=== PATIENT | male | born 1940 | race Caucasian/White ===

== ENCOUNTER → 2018-06-12 10:33 | Outpatient (CLI) | payer MEDICARE, OTHER, SELFPAY ==
--- NOTE | 2018-06-12 | DI.MRI.S_ITS ---
PROCEDURE: MR KNEE RT WO CON INDICATIONS: PRIMARY OSTEOARTHRITIS OF RIGHT KNEE TECHNIQUE: Noncontrast sagittal PD fast spin echo and T2 fast spin echo with fat saturation, sagittal 3-D FLASH with fat saturation; coronal T1 spin echo and PD fast spin echo with fat saturation, and axial PD fast spin echo with fat saturation through the knee. COMPARISON: None. FINDINGS: Image quality: Diagnostic. Bones and joint: There is no acute fracture or dislocation. No suspicious osseous lesions are evident. There is a moderate size knee joint effusion without significant fluid extending into a Sampson cyst. Small intra-articular joint bodies are identified within the knee joint. Degenerative changes of the flabella are noted. Moderate to severe degenerative changes of the knee are most pronounced within the lateral compartment with large cartilaginous defects noted and underlying reactive marrow changes. Bony remodeling of the lateral tibial plateau is noted. Additional degenerative changes are present within the other 2 compartments of the knee. Cruciate ligaments: The anterior cruciate ligament is attenuated and demonstrates increased signal without a full-thickness tear evident. The posterior cruciate ligament is intact. Menisci: Complex tearing of the medial and lateral menisci is predominately seen through the body and posterior horns. There is at least partial-thickness tearing involving the medial and lateral posterior meniscal root. Medial structures: The medial collateral ligament is intact. The semimembranosus tendon insertion is intact. The imaged portions of the pes anserinus tendons are unremarkable. No significant fluid is contained within the pes anserinus bursa. Lateral structures: The popliteal tendon is thickened and edematous, but intact. The lateral collateral ligament proper (fibular collateral ligament) and the proximal tibiofibular ligaments are intact. The distal aspect of the biceps femoris tendon and the iliotibial band are intact. Anterior structures: The quadriceps and patellar tendons are intact. There is no significant edema in the infrapatellar fat pad. IMPRESSION: 1. Severe degenerative changes of the right knee are most pronounced within the lateral compartment. 2. Complex tearing of the medial and lateral menisci. 3. 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 4. Moderate-sized knee joint effusion containing multiple intra-articular joint bodies. 5. Mild proximal popliteal tendinopathy. Dictated by: Jas Dominguez M.D. on 06/12/2018 at 13:45 Approved by: Jas Dominguez M.D. on 06/12/2018 at 14:04
== END ==
PROVIDERS: PCP Family Medicine; Visit Provider Orthopaedic Surgery
DX: M17.11 Unilateral primary osteoarthritis, right knee (principal)
CPT/HCPCS: 73721

== ENCOUNTER → 2018-08-03 09:23 | Outpatient (CLI) | payer MEDICARE, OTHER, SELFPAY ==
[2018-08-03 09:37] LABS: Bacteria Urine None Seen; WBC Urine None Seen (0-5/HPF)
[2018-08-03 10:44] LABS: Add Manual Diff / Slide Review NO; Basophils Percent Auto 0.7 % (0-2); Eosinophils Percent Auto 1.7 % (2-4); Hematocrit 42.5 % (41-53); Hemoglobin 14.9 g/dL (13.5-17.5); Lymphocytes Percent Auto 25.1 % (25-40); Mean Corpuscular HGB Conc 35.1 % (30-36); Mean Corpuscular Hemoglobin 31.2 PG (26-34); Mean Corpuscular Volume 88.7 fL (80-100); Monocytes Percent Auto 6.6 % (3-14); Neutrophils Absolute Auto 2900 /uL (3000-5900); Neutrophils Percent Auto 65.9 % (50-75); Platelet Count 176 X10^3/uL (150-400); Red Blood Cell Count 4.79 X10^6/uL (4.5-5.9); Red Cell Distribution Width 14.2 % (11.6-14.8); White Blood Cell Count 4.4 X10^3/uL (4.5-11.0)
[2018-08-03 10:48] LABS: Hemoglobin A1C% w Est Avg Glu 5.2 % (4.0-6.0)
[2018-08-03 11:03] LABS: BUN Creatinine Ratio 16.3 (6-22); Blood Urea Nitrogen 13 mg/dL (9-20); Calcium 9.2 mg/dL (8.4-10.2); Carbon Dioxide 26 mmol/L (22-32); Chloride 102 mmol/L (98-107); Estimated Glomerular Filt Rate > 60.0 mL/min (>60); Glucose 125 mg/dL (80-110); HEMOLYSIS < 15 (0-50); Potassium 4.4 mmol/L (3.4-5.1); Sodium 142 mmol/L (137-145)
[2018-08-03 11:34] LABS: Appearance Urine UA CLEAR; Bilirubin Urine UA NEGATIVE (NEGATIVE); Color Urine UA YELLOW; Glucose Urine UA NEGATIVE (Normal); Ketones Urine UA NEGATIVE (NEGATIVE); Leukocyte Esterase Urine UA NEGATIVE (NEGATIVE); Nitrite Urine UA NEGATIVE (Negative); Occult Blood Urine UA TRACE-INTACT (Negative); Protein Urine UA NEGATIVE (Negative); Urobilinogen Urine UA 0.2 E.U./dL (0.2)
[2018-08-03 11:37] LABS: Culture Indicated Urine Cult Not Indicated; RBC Urine 1-5/HPF (0-5/HPF)
== END ==
PROVIDERS: PCP Family Medicine; Visit Provider Orthopaedic Surgery
DX: Z01.818 Encounter for other preprocedural examination (principal); Z01.812 Encounter for preprocedural laboratory examination; N39.9 Disorder of urinary system, unspecified; Z13.1 Encounter for screening for diabetes mellitus
CPT/HCPCS: 36415; 80048; 81001; 83036; 85025; 93005; 93010

== ENCOUNTER 2018-09-01 06:11 | Day surgery (SDC) | payer MEDICARE, OTHER, SELFPAY ==
[2018-08-12 08:31] VITALS: BMI 40.4
[2018-09-01] VITALS (13 sets, daily range): BP systolic 110–150; BP diastolic 49–86; PULSE 63–79; RESP 10–18; TEMP 36.3–37.3; O2SAT 92–98; BMI 29.0
--- NOTE | 2018-09-01 06:35 | DI.RAD.S_ITS ---
PROCEDURE: XR KNEE RT 1TO2V INDICATIONS: post op films TECHNIQUE: 2 view(s) of the knee acquired. COMPARISON: [facility], , KNEE 3V RIGHT, 10/22/2017, 9:17. FINDINGS: Bones: Patient is status post knee joint arthroplasty. Hardware components are in expected positions. Visualized bony structures are intact. Soft tissues: Overlying postoperative changes are noted. IMPRESSION: Status post right total knee arthroplasty. Dictated by: Josi Medellin M.D. on 09/01/2018 at 16:20 Approved by: Josi Medellin M.D. on 09/01/2018 at 16:20
[2018-09-01] MEDS: LACTATED RINGERS 1,000 ML 42 ML IV ×2 (06:50→09:41)
[2018-09-01] MEDS: VANCOMYCIN 1,000 MG/200 ML FROZ.PIGGY 200 MG IV (06:55)
[2018-09-01] MEDS: CELECOXIB 200 MG CAPSULE PO (06:58)
[2018-09-01] MEDS: PREGABALIN 75 MG CAPSULE PO (06:58)
[2018-09-01] MEDS: ACETAMINOPHEN 325 MG TABLET 975 MG PO ×3 (06:58→21:45)
[2018-09-01] MEDS: fentaNYL 100 MCG/2 ML INJ 50 MCG IV (07:40)
[2018-09-01] MEDS: MIDAZOLAM 2 MG/2 ML VIAL IV (07:40)
--- NOTE | 2018-09-01 07:42 | PM.PREOP ---
Pre-operative Note Interval Note History & Physical reviewed/Exam performed by Physician: Yes Changes to H&P: No
--- NOTE | 2018-09-01 07:42 | PM.OP.1 ---
Operative Date/Time/Diagnoses Date of procedure: 09/01/18 Time of procedure: 09:42 Pre-op diagnosis: right knee OA Post-op diagnosis: same Procedure & Clinicians Procedure: right total knee Same procedure as scheduled: Yes Indications: The patient has had progressively worsening right knee pain with radiographic changes consistent with arthritis. Non-operative management has failed and the patient has requested total knee replacement. The risks, benefits and alternatives to surgery were discussed with the patient prior to proceeding. Risks discussed included, but were not limited to, failure to relieve pain, stiffness, infection, nerve damage, deep venous thrombosis, pulmonary embolism, stroke, coma, heart attack, permanent paralysis and , as well as the potential need for eventual revision of the prosthetic. Surgeon: Viridiana Del Toro Hairspring Setter: Lizette Strickland Anesthesia Type: Spinal and Peripheral nerve block Operative Notes Findings: severe right knee OA, good balance and rom Closure Type: primary Specimen(s): none sent Implants & Drains: Journey BCS2 9 femur, 8 tibia, +9 poly, 38 oval patella Applied: device(s) Estimated Blood Loss (mL): 250 Blood products transfused: none Tourniquet time (min): 109 Procedure in detail: The patient was seen in the pre-operative area, where the patient identified the right knee as the operative site and this was marked with my initials. The patient received pre-operative antibiotics, and was taken to the operating room and placed on the operative table in the supine position. After satisfactory anesthesia, a full fashioned garment knitter out was performed. The right leg was encircled with a tourniquet about the proximal thigh, and the leg was prepared from the toes to the tourniquet with ChloroPrep in the usual fashion and draped through sterile drapes. The leg was elevated and exsanguinated with Eschmark bandage and the tourniquet inflated to [250] mmHg pressure. The knee was approached through an approximately 18 cm incision centered over the patella and carried into the knee through a medial parapatellar arthrotomy. A portion of the medial and lateral meniscus was resected. Soft tissue was carefully mobilized around the patella the patella was measured with a caliper. Bone was resected from the patella and the patellar height was reconstituted with up an appropriate sized patellar component. A cover was then placed on the patella. A small amount of additional medial and lateral meniscus was resected. The visionare guide fit well to the distal femur. It looked like an appropriate distal femoral cut and the cut was made without difficulty. The rotation was assessed and the appropriate size femoral guide was placed on the distal femur and finishing cuts were made. There was no evidence of notching. The anterior, posterior and chamfer cuts were then made. The posterior osteophytes and soft tissues were then removed. The posterior capsule was injected with part of a mixture of 60 ml 0.25% Marcaine mixed with 20 ml Exparel for post operative pain control. The remainder of this mixture was injected into the capsule and subcutaneous tissues during cement curing. The tibia was prepared and the visionaire guide fit well to the distal tibia. The rotation was assessed. The patient was placed in extension residual medial and lateral meniscus as well as any residual bone was carefully resected. [2mm] additional tibia was resected. Hemostasis was achieved especially posteriorly. Additional local was injected into the posterior capsule. The extension gap was assessed and additional releases for gap balancing were performed as necessary. It was checked with the gap dowel pointer. The femoral component trial was placed and the notch was finished. Trial tibial and femoral components were then placed and the knee placed through a range of motion. Range of motion was [0-130], with good stability throughout the range. The trials were then removed, and the tibia was finished. The bone was prepared with pulsatile lavage, and dried with a sponge. Cement was applied and the final prosthetics placed. Excess cement was removed during and after cement curing. A brief Betadine soak was performed. After confirming there was no extruded cement posteriorly, the final tibial insert was placed. The knee was copiously irrigated and the tourniquet deflated. Hemostasis was obtained with the [Aquamantys system]. A drain was placed and brought out superolaterally. The capsule was closed with interrupted # 1 black braided suture. The subcutaneous layer was closed with barbed sutures, and the skin with a running 3-0 V-Lock suture and Surgical glue. An Aquacel Ag dressing was applied and the patient was taken to recovery having tolerated the procedure well. Complications: none Condition: stable Disposition: Acute Care Plan for aftercare: The patient will be maintained on a standard total knee replacement protocol with weight bearing as tolerated. The patient will receive aspirin and sequential compression devices for DVT prophylaxis. The patient will be discharged home when safe for the home environment.
--- NOTE | 2018-09-01 07:45 | P.OP_ITS ---
Operative Date/Time/Diagnoses Date of procedure: 09/01/18 Time of procedure: 09:42 Pre-op diagnosis: right knee OA Post-op diagnosis: same Procedure & Clinicians Procedure: right total knee Same procedure as scheduled: Yes Indications: The patient has had progressively worsening right knee pain with radiographic changes consistent with arthritis. Non-operative management has failed and the patient has requested total knee replacement. The risks, benefits and alternatives to surgery were discussed with the patient prior to proceeding. Risks discussed included, but were not limited to, failure to relieve pain, stiffness, infection, nerve damage, deep venous thrombosis, pulmonary embolism, stroke, coma, heart attack, permanent paralysis and , as well as the potential need for eventual revision of the prosthetic. Surgeon: Viridiana Del Toro Gate Agent: Lizette Strickland Anesthesia Type: Spinal and Peripheral nerve block Operative Notes Findings: severe right knee OA, good balance and rom Closure Type: primary Specimen(s): none sent Implants & Drains: Journey BCS2 9 femur, 8 tibia, +9 poly, 38 oval patella Applied: device(s) Estimated Blood Loss (mL): 250 Blood products transfused: none Tourniquet time (min): 109 Procedure in detail: The patient was seen in the pre-operative area, where the patient identified the right knee as the operative site and this was marked with my initials. The patient received pre-operative antibiotics, and was taken to the operating room and placed on the operative table in the supine position. After satisfactory anesthesia, a time analysis clerk out was performed. The right leg was encircled with a tourniquet about the proximal thigh, and the leg was prepared from the toes to the tourniquet with ChloroPrep in the usual fashion and draped through sterile drapes. The leg was elevated and exsanguinated with Eschmark bandage and the tourniquet inflated to [250] mmHg pressure. The knee was approached through an approximately 18 cm incision centered over the patella and carried into the knee through a medial parapatellar arthrotomy. A portion of the medial and lateral meniscus was resected. Soft tissue was carefully mobilized around the patella the patella was measured with a caliper. Bone was resected from the patella and the patellar height was reconstituted with up an appropriate sized patellar component. A cover was then placed on the patella. A small amount of additional medial and lateral meniscus was resected. The visionare guide fit well to the distal femur. It looked like an appropriate distal femoral cut and the cut was made without difficulty. The rotation was assessed and the appropriate size femoral guide was placed on the distal femur and finishing cuts were made. There was no evidence of notching. The anterior, posterior and chamfer cuts were then made. The posterior osteophytes and soft tissues were then removed. The posterior capsule was injected with part of a mixture of 60 ml 0.25% Marcaine mixed with 20 ml Exparel for post operative pain control. The remainder of this mixture was injected into the capsule and subcutaneous tissues during cement curing. The tibia was prepared and the visionaire guide fit well to the distal tibia. The rotation was assessed. The patient was placed in extension residual medial and lateral meniscus as well as any residual bone was carefully resected. [2mm] additional tibia was resected. Hemostasis was achieved especially posteriorly. Additional local was injected into the posterior capsule. The extension gap was assessed and additional releases for gap balancing were performed as necessary. It was checked with the gap senior adults director. The femoral component trial was placed and the notch was finished. Trial tibial and femoral components were then placed and the knee placed through a range of motion. Range of motion was [0-130 ], with good stability throughout the range. The trials were then removed, and the tibia was finished. The bone was prepared with pulsatile lavage, and dried with a sponge. Cement was applied and the final prosthetics placed. Excess cement was removed during and after cement curing. A brief Betadine soak was performed. After confirming there was no extruded cement posteriorly, the final tibial insert was placed. The knee was copiously irrigated and the tourniquet deflated. Hemostasis was obtained with the [Aquamantys system]. A drain was placed and brought out superolaterally. The capsule was closed with interrupted # 1 black braided suture. The subcutaneous layer was closed with barbed sutures, and the skin with a running 3 -0 V-Lock suture and Surgical glue. An Aquacel Ag dressing was applied and the patient was taken to recovery having tolerated the procedure well. Complications: none Condition: stable Disposition: Acute Care Plan for aftercare: The patient will be maintained on a standard total knee replacement protocol with weight bearing as tolerated. The patient will receive aspirin and sequential compression devices for DVT prophylaxis. The patient will be discharged home when safe for the home environment.
[2018-09-01] MEDS: CEFAZOLIN 2 GM/100 ML FROZ.PIGGY IV ×2 (07:53→16:10)
--- NOTE | 2018-09-01 07:58 | SUR.PREOP ---
Block start time [0740] . Monitoring initiated and maintained throughout procedure. Oxygen and medications given per anesthesiologist instructions. Patient remained stable throughout procedure, no adverse reactions noted. Block end time [0748].
[2018-09-01] MEDS: TRANEXAMIC ACID 1,000 MG VIAL 1000 MG INJ ×2 (08:14→10:21)
--- NOTE | 2018-09-01 08:34 | SUR.OPER ---
Supine on padded OR bed, head on pillow, arms secured on padded arm boards at <90 degrees abduction, legs uncrossed, safety belt at thigh, tape over blanket over lower legs.
[2018-09-01] MEDS: BUPIVACAINE 0.25% W/ EPI VIAL 50 ML INJ (08:41)
[2018-09-01] MEDS: BUPIVACAINE LIPOSOME 266 MG/20 ML VIAL INJ (08:42)
[2018-09-01] MEDS: POVIDONE-IODINE 15 ML, SODIUM CHLORIDE 0.9% 250 ML TOP (08:43)
--- NOTE | 2018-09-01 09:04 | PM.PROC.1 ---
Procedures Date/Time Date of procedure: 09/01/18 Time of procedure: 07:40 Nerve Block Time out performed: Yes Local anesthetic used: lidocaine 2% (Lido 1% for skin infiltration, 25g; For Block= Ropivacaine 0.5% 18ml; Lido 2% w/ epi 5ml, 22g stimex 100mm) Location of anesthetic used: Adductor canal right medial thigh Amount of anesthesia used (mL): 23 Nerve blocks: hematoma block and other (Adductor Canal, saphenous nerve, right) Procedure successful: Yes Patient tolerated procedure: well and no complications Complications: none Additional comments: Sterile technique used. Monitors per HÉCTOR guidelines. O2 per NC. IV sedation with Versed 1mg and fentanyl 50mcg. Ultrasound technique used. Negative aspiration and no paresthesias. Patient tolerated well.
[2018-09-01] MEDS: LACTATED RINGERS 1,000 ML 125 ML IV ×2 (12:29→22:26)
--- NOTE | 2018-09-01 12:41 | PC.NURSE ---
Pt to room at 1135 from PACU in bed with Spouse at the bedside. Pt awake alert and oriented x3. Denies pain, nausea, or shortness of breath. Pt can move feet but feels that his sensation to his feet is decreased. PP+. Pt oriented to room, call light, bed controls, and tv controls. IV infusing as ordered. SCD's on and running. Bed alarm on and Pt agrees to call for assistance as needed.
--- NOTE | 2018-09-01 13:48 | PT.IIE ---
Current Diagnoses Unilateral primary osteoarthritis, right knee (09/01/18) Surgery Performed Operation Date: 09/01/18 07:45 Actual Procedures p Total Knee Arthroplasty(Right) - Viridiana Del Toro MD Surgical History (Last Updated 08/12/18 @ 09:14 by Jonna Conti, RN) H/O knee surgery (Acute) History of appendectomy (Acute) History of vasectomy (Acute) Medical History (Last Updated 08/12/18 @ 09:14 by Jonna Conti, RN) Cataract fragments of both eyes following cataract surgery (Acute) Hyperlipidemia (Acute) Osteoarthritis of right knee (Acute) Pulmonary emboli (Acute ~2002) Skin cancer (Acute) Physical Therapy Inpatient Evaluation/Re-Eval M1 PT/OT-IP Prior Functional Status Start: 09/01/18 13:40 Freq: NEEDED Status: Active Protocol: Document 09/01/18 13:40 RS (Rec: 09/01/18 13:47 RS [id number]) Medical Review Prior Functional Status Medical History Reviewed Yes Diet/Fluid Consistency Regular Communication no known deficits Mobility and Gait completely indep without AD Activities of Daily Living and IADL's indep Prior Functional Level (Other details) retired, goes out in the RV for a few months each year Social History Household Members spouse Living Arrangements House Number of Floors (Floors) One Floor Number of Stairs To Enter/Railing? 3STE on RV, but no stairs at home Home Environment Standard Height Toilet Home Equipment Front Wheel Walker Employment Status Retired M2 PT-IP Current Condition Start: 09/01/18 13:40 Freq: NEEDED Status: Active Protocol: Document 09/01/18 13:40 RS (Rec: 09/01/18 13:47 RS [id number]) Physical Therapy Current Condition Current Condition Evaluation Date 09/01/18 Treatment Diagnosis R TKA Onset Date 09/01/18 Weight Bearing Status Weight Bearing Status Weight Bear as Tolerated M3 PT-IP Subjective Start: 09/01/18 13:40 Freq: NEEDED Status: Active Protocol: Document 09/01/18 13:40 RS (Rec: 09/01/18 13:47 RS [id number]) Subjective Physical Therapy Visit Type Type Initial Evaluation Visit Start Time 12:55 Visit Stop Time 13:40 Total Visit Minutes 45 Physical Therapy Visit Comments Patient Comments Pt reports doing well, surprised with how good he feels. Patient Goals go home tomorrow, be ready to go out in the by October Therapy Pain Assessment Pain When Pain Assessed At Rest Pain Present Pain Present Denied Pain M4 PT-IP Mobility and Gait Start: 09/01/18 13:40 Freq: NEEDED Status: Active Protocol: Document 09/01/18 13:40 RS (Rec: 09/01/18 13:47 RS [id number]) PT-Bed Mobility Assessment Supine to Sit Supine to Sit Independent Sit to Supine Sit to Supine Independent Scooting Scooting to Edge of Bed Independent PT-Transfer Assessment Sit to and From Stand Sit to and from Stand Standby Assistance Equipment Transfer Assistive Device Gait Belt Front Wheeled Walker Transfers Transfer Destination Bed Chair Transfer Technique walked Transfer Ability Level of Assist Standby Assistance Gait Assessment Gait Gait Assistance Required: Standby Assistance Distance (Feet) 100 Assistive Devices Assistive Device Gait Belt Front Wheeled Walker Gait Deviations General Gait Pattern Within Normal Limits Comments Gait Comments Slow gait velocity with FWW but steady, relatively symmetrical, heel able to pass the contralateral toe with each step but still shortened compared to likely baseline, smooth motion. Stair Climbing Assessment Comments Stair Climbing Comments not tested PT-Balance Assessment Sitting Balance and Reactions Static Sitting Balance Ability Normal Dynamic Sitting Balance Ability Normal Standing Balance and Reactions Static Standing Balance Ability Good Dynamic Standing Balance Ability Good Device Used FWW M5 PT-IP Objective Assessments Start: 09/01/18 13:40 Freq: NEEDED Status: Active Protocol: Document 09/01/18 13:40 RS (Rec: 09/01/18 13:47 RS [id number]) Orientation Orientation/Cognition Level of Alertness Alert Orientation Name Age Birthday Month Date Year Day of Week Place Situation Language Function Ability No Deficits Noted Safety Awareness Understands Safety Issues Memory Description No Deficits Noted Gross Range of Motion Upper Extremity ROM Assessment Within Functional Limits Lower Extremity ROM Assessment Right Impaired Impairments 5-85 Strength Upper Extremity Strength Assessment Within Functional Limits Lower Extremity Strength Assessment Right Impaired Comments Strength Comments R not tested but at least 3/5 M6 PT-IP Treatment Start: 09/01/18 13:40 Freq: NEEDED Status: Active Protocol: Document 09/01/18 13:40 RS (Rec: 09/01/18 13:47 RS [id number]) Physical Therapy Treatment Exercises Exercises Ankle Pumps Quad Sets Heel Slides Straight Leg Raises Short Arc Quads Passive Knee Extension Hang Seated Knee Flexion/Extension Knee ROM Measurement 5-85 Education Education Provided Precautions Weight Bearing Status Post-Op Packet Safety M7 PT-IP Assessment and Plan Start: 09/01/18 13:40 Freq: NEEDED Status: Active Protocol: Document 09/01/18 13:40 RS (Rec: 09/01/18 13:47 RS [id number]) PT Summary Assessment and Plan Potential Rehabilitation Potential Excellent Status of Condition at Evaluation Stable Summary Impairments Pain ROM Strength Transfers Gait Activity Tolerance Progress Towards Goals Progressing Toward Goals Assessment Summary Pt is POD#0 R TKA. Pt still with a little numbess but able to mobilize without unexpected difficulty. Pt is ind for bed mobility and SBA for FWW. Anticipate that pt will be mod ind wiht ongoing mobilization with nursing and therapy staff and that pt will be safe to discharge directly home tomorrow. Will need 1 more session for gait progress and stairs trial. Pt in agreement with plan. Goals Bed Mobility Goal Independent Transfer Goal Independent Front Wheeled Walker Gait Goal Independent Front Wheel Walker Gait Distance 200 Other Goals Up/down 3 steps with 1 rail. Days to Meet Goals 1 Frequency of Treatment Frequency Of Treatment Once a Day Treatment Plan Physical Therapy Treatment Plan Bed Mobility Training Transfer Training Gait Training Therapeutic Exercise Balance Retraining Post Op Education Discharge Planning Hot or Cold Pack Neuromuscular Re-ed Coordination Retraining Manual Therapy Recommendations To Nursing Amount of Assist Needed Standby Assistance Discharge Recommendations PT Discharge Recommendations Home with Assistance Outpatient PT
--- NOTE | 2018-09-01 18:54 | PC.NURSE ---
Addendum entered by Rachael Faust R.N. 09/01/18 18:59: @ [address] this RN spoke with Dr Del Toro regarding hemovac output; pt mentioned that he was maybe doing too much exercise, demonstrating quad sets which may have increased drain output; Dr Del Toro asks that nursing staff just keep an eye on it Original Note: @ 1820 fluid from hemovac measures 150 mL; pt denies dizziness; VSS; pt transfers with SBA to bathroom and bed; c/m/s to RLE positive with some mild tingling to right knee; PPP; ls clear, O2 RA=98%; pt denies pain; call light within reach
[2018-09-01] MEDS: ASPIRIN EC 81 MG TABLET PO (21:46)
[2018-09-01] MEDS: DOCUSATE 100 MG CAPSULE PO (21:46)
[2018-09-02] MEDS: CEFAZOLIN 2 GM/100 ML FROZ.PIGGY IV (00:16)
[2018-09-02 01:02] VITALS: BP 131/74; PULSE 67; RESP 16; TEMP 36.3; O2SAT 97
[2018-09-02 05:46] LABS: Hematocrit 39.1 % (41-53); Hemoglobin 13.5 g/dL (13.5-17.5)
[2018-09-02 06:47] VITALS: BP 135/71; PULSE 73; RESP 16; TEMP 36.5; O2SAT 95
[2018-09-02] MEDS: ACETAMINOPHEN 325 MG TABLET 975 MG PO (06:50)
[2018-09-02 07:30] VITALS: BP 139/74; PULSE 68; RESP 18; TEMP 36.3; O2SAT 97
--- NOTE | 2018-09-02 08:54 | PM.DS.1 ---
History of Present Illness Date Patient Seen: 09/02/18 Time Patient Seen: 08:54 Chief complaint: [id number] RIGHT TOTAL KNEE ARTHROPLASTY Narrative: The patient has had progressively worsening right knee pain with radiographic changes consistent with arthritis. Non-operative management has failed and the patient has requested total knee replacement. The risks, benefits and alternatives to surgery were discussed with the patient prior to proceeding. Risks discussed included, but were not limited to, failure to relieve pain, stiffness, infection, nerve damage, deep venous thrombosis, pulmonary embolism, stroke, coma, heart attack, permanent paralysis and , as well as the potential need for eventual revision of the prosthetic. Discharge Providers Date of admission: 09/01/18 06:11 Primary care physician: Art Nelson MD Consults: 09/01/18 06:35 Consult to Anesthesiology Routine Comment: Consulting Provider: Anesthesiologist Reason for consultation: Regional block for post operative pain control 09/01/18 11:43 Consult to Discharge Planning Routine Comment: Consult to Physical Therapy Evaluate & Treat Comment: Physician Instructions: postop TKA protocol Consult to Respiratory Therapy Evaluate & Treat Comment: Physician Instructions: Evaluate and treat Discharge provider: Genna Zapata PA-C Discharge Date: 09/02/18 Summary Discharge Diagnosis: s/p right total knee arthroplasty Hospital Course: Mohamud was admitted for right total knee arthroplasty with Dr. Del Toro, and he consented to procedure. Hospital course unremarkable. On POD #1 patient was ready to DC home. He was eating and voiding without any difficulty or assistance. He worked with PT throughout his stay. On day of discharge drain was removed. Status at Discharge Functional status at discharge: uses cane/walker Exam Vital Signs (past 8 hours): - 09/02/18 01:02 09/02/18 06:47 09/02/18 07:30 Temperature 97.3 F L 97.7 F 97.3 F L Pulse Rate 67 73 68 Respiratory Rate 16 16 18 Blood Pressure 131/74 135/71 139/74 Pulse Oximetry 97 95 97 Oxygen Delivery Method Room Air Oxygen Flow Rate 0 Narrative Exam Narrative: Patient sitting in bedside chair in NAD. He is alert and oriented X3. Dressing on right leg is CDI. Hemovac in place. Calves are soft, compressible, and nontender bilaterally. His pain was well controlled last night. Denies chest pain, or shortness of breath. Objective Labs Result Diagrams: 09/02/18 05:02 Labs: Laboratory Results - last 24 hr 09/02/18 05:02 Hgb 13.5 Hct 39.1 L Discharge Plan Discharge Plan Patient Disposition: Home Discharge comment: DC home today Discharge Med Rec/Prescriptions Prescriptions: New acetaminophen 325 mg Tablet 975 mg PO TID Qty: 60 RF: 0 docusate sodium 100 mg Capsule 100 mg PO BID Qty: 60 RF: 0 Continue MULTIVITAMIN (Multivitamin -) 1 cap PO EVERY DAY Qty: 0 RF: 0 celecoxib [Celebrex] 200 mg Capsule 200 mg PO DAILY PRN (Reason: Pain) RF: 0 Changed ASPIRIN (Aspirin Low Dose) 81 mg PO BID Qty: 0 RF: 0 Follow up/Referrals: Viridiana Del Toro MD [Physician] - (Follow up in 5-7 days) Skin/Wound/Dressing Care Report to your healthcare provider any signs of infection, such as:: chills, fever and increased pain Dressing: Leave in place for 10-14 days Visit Report/Discharge Packet Instructions: DI for Knee Replacement, DI for Constipation Discharge Data Primary Care Provider: Art Nelson Attending Provider: Viridiana Del Toro Admit Date/Time: 09/01/18 06:11 Quality VTE Deep Vein Thrombosis/Pulmonary Embolism Present on Admission: No
--- NOTE | 2018-09-02 09:29 | PT.IPTN ---
Current Diagnoses Unilateral primary osteoarthritis, right knee (09/01/18) Surgery Performed Operation Date: 09/01/18 07:45 Actual Procedures p Total Knee Arthroplasty(Right) - Viridiana Del Toro MD Physical Therapy Treatment Note M2 PT-IP Current Condition Start: 09/01/18 13:40 Freq: NEEDED Status: Active Protocol: Document 09/01/18 13:40 RS (Rec: 09/01/18 13:47 RS [id number]) Physical Therapy Current Condition Current Condition Evaluation Date 09/01/18 Treatment Diagnosis R TKA Onset Date 09/01/18 Weight Bearing Status Weight Bearing Status Weight Bear as Tolerated M3 PT-IP Subjective Start: 09/01/18 13:40 Freq: NEEDED Status: Active Protocol: Document 09/02/18 09:20 GGD (Rec: 09/02/18 09:29 GGD [email or web address]) Subjective Physical Therapy Visit Type Type Treatment Note Visit Start Time 08:55 Visit Stop Time 09:20 Total Visit Minutes 25 Number of SECURITY SYSTEM ANALYST Visits 1 Physical Therapy Visit Comments Patient Comments Pt feels ready to go home. Therapy Pain Assessment Pain When Pain Assessed At Rest Pain Present Pain Present Denied Pain M4 PT-IP Mobility and Gait Start: 09/01/18 13:40 Freq: NEEDED Status: Active Protocol: Document 09/02/18 09:20 GGD (Rec: 09/02/18 09:29 GGD [email or web address]) PT-Transfer Assessment Sit to and From Stand Sit to and from Stand Standby Assistance Equipment Transfer Assistive Device Gait Belt Front Wheeled Walker Transfers Transfer Destination Chair Transfer Ability Level of Assist Standby Assistance Gait Assessment Gait Gait Assistance Required: Standby Assistance Distance (Feet) 200 Assistive Devices Assistive Device Gait Belt Front Wheeled Walker Gait Deviations General Gait Pattern Within Normal Limits Comments Gait Comments improving step length with gait. M5 PT-IP Objective Assessments Start: 09/01/18 13:40 Freq: NEEDED Status: Active Protocol: Document 09/01/18 13:40 RS (Rec: 09/01/18 13:47 RS [id number]) Orientation Orientation/Cognition Level of Alertness Alert Orientation Name Age Birthday Month Date Year Day of Week Place Situation Language Function Ability No Deficits Noted Safety Awareness Understands Safety Issues Memory Description No Deficits Noted Gross Range of Motion Upper Extremity ROM Assessment Within Functional Limits Lower Extremity ROM Assessment Right Impaired Impairments 5-85 Strength Upper Extremity Strength Assessment Within Functional Limits Lower Extremity Strength Assessment Right Impaired Comments Strength Comments R not tested but at least 3/5 M6 PT-IP Treatment Start: 09/01/18 13:40 Freq: NEEDED Status: Active Protocol: Document 09/02/18 09:20 GGD (Rec: 09/02/18 09:29 GGD [email or web address]) Physical Therapy Treatment Exercises Exercises Ankle Pumps Quad Sets Straight Leg Raises Seated Knee Flexion/Extension M7 PT-IP Assessment and Plan Start: 09/01/18 13:40 Freq: NEEDED Status: Active Protocol: Document 09/02/18 09:20 GGD (Rec: 09/02/18 09:29 GGD [email or web address]) PT Summary Assessment and Plan Summary Assessment Summary Pt improving with mobility and ROM. He was safe and stable with gait and transfers. He had good pain control with all activities. He is safe for home D/C when medically stable . Frequency of Treatment Frequency Of Treatment Once a Day Recommendations To Nursing Amount of Assist Needed Standby Assistance Discharge Recommendations PT Discharge Recommendations Home with Assistance Outpatient PT
[2018-09-02] MEDS: IBUPROFEN 600 MG TABLET PO (09:41)
[2018-09-02] MEDS: DOCUSATE 100 MG CAPSULE PO (09:42)
[2018-09-02] MEDS: ASPIRIN EC 81 MG TABLET PO (09:42)
[2018-09-02] MEDS: MULTIVITAMIN 1 TABLET 1 TAB PO (09:42)
--- NOTE | 2018-09-02 10:14 | PC.NURSE ---
D/C note Drain d/c'd prior to discharge, dressing placed. Instructions given on knee replacement and constipation and meds reviewed. All questions answered. Escorted to hospital exit via wheelchair by staff member at [phone]. All belongings with patient.
--- NOTE | 2018-09-02 11:01 | PC.NURSE ---
Discharge: Pt feels ready to d/c home. Spouse here at time of teaching. Did see PA and received instructions from her. Saw PT this am and received their final instructions. Wound care has been discussed as well as nerve block wearing off. Pt does understand his knee precautions. Feels ready for d/c home. D/c home via auto with .
== END 2018-09-02 10:14 | disposition home or self-care (01) ==
LOC: AC 09-02 09:08 → OR 09-02 10:29
PROVIDERS: PCP Family Medicine; Visit Provider Orthopaedic Surgery
PROC: 0SRC0JZ Replacement of Right Knee Joint with Synthetic Substitute, Open Approach (ICD-10-PCS; CPT 27447; principal; 2018-09-01 07:45)
DX: M17.11 Unilateral primary osteoarthritis, right knee (principal); G89.18 Other acute postprocedural pain
CPT/HCPCS: 27447; 36415; 64447; 64450; 73560; 85014; 85018; 93005; 94760; 97110; 97116; 97161; C1776; C9290; J0690; J1100; J2250; J2405; J2704; J2795; J3010; J3370

== ENCOUNTER → 2020-12-04 10:20 | Outpatient (CLI) | payer MEDICARE, OTHER, SELFPAY ==
[2018-09-01 11:51] VITALS: BMI 29.0
[2020-12-04 14:37] LABS: COVID19 -Nasal RAPID Negative (Negative)
== END ==
PROVIDERS: PCP Family Medicine; Visit Provider Surgery
DX: Z20.822 Contact with and (suspected) exposure to COVID-19 (principal)
CPT/HCPCS: 87635; C9803

== ENCOUNTER 2020-12-05 06:21 | Day surgery (SDC) | payer MEDICARE, OTHER, SELFPAY ==
[2018-09-01 11:51] VITALS: BMI 29.0
[2020-12-05] VITALS (7 sets, daily range): BP systolic 101–157; BP diastolic 60–84; PULSE 62–83; RESP 12–16; TEMP 36.1–36.4; O2SAT 95–100; BMI 27.7
--- NOTE | 2020-12-05 07:08 | PM.HP.1 ---
History of Present Illness History of Present Illness Chief complaint: SCREENING COLONOSCOPY Patient History Medical History Cataract fragments of both eyes following cataract surgery Hyperlipidemia Osteoarthritis of right knee Pulmonary emboli (~2002) Skin cancer Surgical History H/O knee surgery History of appendectomy History of vasectomy Family & Social History Tobacco & Substance use: Smoking Status Never smoker Meds Home Medications and Allergies Home Medications Medication Instructions Recorded Confirmed Type MULTIVITAMIN (Multivitamin 1 cap PO EVERY DAY #0 07/23/08 12/05/20 History -) ASPIRIN (Aspirin Low Dose) 81 mg PO DAILY 12/05/20 12/05/20 History Allergies Allergy/AdvReac Type Severity Reaction Status Date / Time No Known Drug Allergies Allergy Unknown Verified 09/01/18 07:09 Review of Systems Review of Systems Narrative: no cough, no change in bowel habits, + weight loss due to knee surgery ROS: Yes All systems reviewed with the patient and are negative except as otherwise documented Exam Const General: cooperative and healthy appearing HENNJ Head: normal to inspection and atraumatic Eyes General: appearance normal, both eyes and all related structures Neck Neck: normal visual inspection and trachea midline Chest Chest: normal inspection of the chest Resp Effort & Inspection: normal respiratory effort and able to speak in complete sentences Auscultation: clear to auscultation bilaterally Cardio Rate: regular rate Rhythm: regular rhythm GI Inspection: normal to inspection Palpation: soft Skin General: dry skin Hair: general thinning Nails: normal Neuro General: patient alert, patient awake and patient oriented x3 Cranial Nerves: tongue midline Cognition: normal cognition Extrem General: full ROM Psych Appearance: grossly normal Speech and Movement: speech and movement normal Assessment & Plan Assessment & Plan narrative: here for screening colonoscopy. Asymptomatic, no family history for colon cancer. Last colonoscopy was 10-12 years ago due to bleeding and multiple polyps taken. COVID-19 COVID-19 status: Negative Time Spent With Patient Time with patient: 15-24 minutes
[2020-12-05] MEDS: LACTATED RINGERS 1,000 ML 125 ML IV (07:34)
--- NOTE | 2020-12-05 07:39 | PM.OP.ENDO ---
Operative Date/Time/Diagnoses Date of procedure: 12/05/20 Time of procedure: 07:39 Pre-op diagnosis: history of colon polyps Post-op diagnosis: same Procedure & Clinicians Study performed: colonoscopy with moderate sedation Same procedure as scheduled: Yes Indications: h/o colon polyps Surgeon: Lou Somers Procedure Notes SCOAP/Timeout: Time-out performed prior to procedure Procedure in detail: Preop diagnosis: History of colon polyps Postop diagnosis: Same Operative procedure: Colonoscopy with moderate sedation Surgeon: Maggi Somers MD Anesthetic: Versed and fentanyl, see nurse's note for dosing. Findings: Excellent bowel prep, no polyps. Small and scant diverticulosis of the sigmoid colon Procedure: Patient is placed in a lateral position. Rectal exam was performed showing normal tone no masses. Colonoscopy inserted in the rectum advanced to ileocecal valve with minimal difficulty. Insufflation and extraction of the scope including a retroflex in the rectum had the above findings. Impression: Normal colonoscopy, no polyps identified. Plan: Repeat colonoscopy in 10 years unless otherwise indicated by change in clinical condition Scope withdrawal time: 6min Sedation minutes: 8 Findings: diverticulosis (small scant) Specimen(s): none sent Complications: none Impression: normal colonoscopy. 10 year recall unless otherwise indicated by clinical condition Post-procedure Recommendations: Colonscopy in 10 years Plan for aftercare: Home, no restrictions, stay hydrated. Follow up: as needed Disposition: PACU
[2020-12-05] MEDS: fentaNYL 250 MCG/5 ML INJ IV (07:55)
[2020-12-05] MEDS: MIDAZOLAM 5 MG/5 ML VIAL IV (07:55)
== END 2020-12-05 09:00 | disposition home or self-care (01) ==
PROVIDERS: PCP Family Medicine; Referring Provider Family Medicine; Visit Provider Surgery
PROC: 0DJD8ZZ Inspection of Lower Intestinal Tract, Via Natural or Artificial Opening Endoscopic (ICD-10-PCS; CPT 45378; principal; 2020-12-05 07:45)
DX: Z12.11 Encounter for screening for malignant neoplasm of colon (principal); Z86.010 Personal history of colon polyps; K57.30 Diverticulosis of large intestine without perforation or abscess without bleeding; E78.5 Hyperlipidemia, unspecified
CPT/HCPCS: G0105; 99152; J2250; J3010

== ENCOUNTER → 2024-11-02 12:22 | Outpatient (CLI) | payer MEDICARE, OTHER, SELFPAY ==
[2018-09-01 11:51] VITALS: BMI 29.0
[2024-11-02 13:44] LABS: Prostate Specific Antigen 4.07 ng/mL (0.10-4.00)
== END ==
PROVIDERS: PCP Family Medicine; Referring Provider Urology; Visit Provider Urology
DX: R97.20 Elevated prostate specific antigen [PSA] (principal)
CPT/HCPCS: 36415; 84153